=== PATIENT | female | born 1955 | race Caucasian/White ===

== ENCOUNTER 2023-09-29 10:14 | Outpatient (AMB) | payer MEDICARE, MEDICAID, SELFPAY ==
--- NOTE | 2023-09-29 10:24 | A.SPINEOV_ITS ---
Intake Visit Reasons: Lower back pain Intake Note: Ms. Torres, 68 y/o female, is here today c/o low back pain. [employer] Preparer Required: No Assessment & Plan Assessment & Plan (1) Osteoporosis: Code(s): M81.0 - Age-related osteoporosis without current pathological fracture Category: Medical (2) Scoliosis of lumbar region due to degenerative disease of spine in adult: Code(s): M41.56 - Other secondary scoliosis, lumbar region Category: Medical Plan Dear colleague Thank you for referring Zaki Torres to the office today with a chief complaint of chronic neck pain and back pain. HPI: This 68-year-old female has chronic neck pain and back pain. She underwent an anterior lumbar interbody fusion in the past and the microdiskectomy. Recently she had a spinal cord stimulator placed. She states she has severe back pain radiating down her entire left side. The same is true for the neck. She denies numbness or weakness. Her medical history is positive for osteoporosis hypothyroidism. On exam, She is cachectic and walks with a cane. She is full strength. No pathological reflexes. A review of a CT scan of the cervical and lumbar spine shows hypodensity and multiple compression fractures as a sign of extensive osteoporosis. In addition there is a lumbar degenerative scoliosis and complete obliteration of the L3-4 and L4-5 disc spaces. I discussed with the patient that I understand her chronic pain but that I will not be able to surgically correct her symptoms based on her poor bone quality. I reviewed the imaging in detail with the patient and she understood my explanation. I discharged her from further follow-up. total time spent was 30 minutes in counseling ,coordination of plan, personal review of imaging, surgical decision making. Tariq Blue MD, PhD Spine Fellowship Trained Neurosurgeon Director, [facility] Coding Level of Care Code New Pt Level 3 (34281) Diagnoses Osteoporosis M81.0 Scoliosis of lumbar region due to degenerative disease of spine in adult M41.56
== END 2023-09-29 11:23 | disposition home or self-care (01) ==
PROVIDERS: PCP Internal Medicine; Visit Provider Neurological Surgery
DX: M81.0 Age-related osteoporosis without current pathological fracture (principal); M41.56 Other secondary scoliosis, lumbar region
CPT/HCPCS: 99203

== ENCOUNTER → 2023-09-29 10:14 | Outpatient (BNVA) | payer MEDICARE, MEDICAID, SELFPAY | PROVIDERS: PCP Internal Medicine; Visit Provider Neurological Surgery | DX: M81.0 Age-related osteoporosis without current pathological fracture (principal); M41.56 Other secondary scoliosis, lumbar region | CPT/HCPCS: 99202 ==